=== PATIENT | female | born 1960 | race Caucasian/White ===

== ENCOUNTER → 2016-09-12 | Outpatient (REF) | payer OTHER | LOC: M SFHCPLAZ 15:47 | PROVIDERS: ATTEND Dermatology | DX: L57.0 Actinic keratosis (principal); C44.301 Unspecified malignant neoplasm of skin of nose; C44.91 Basal cell carcinoma of skin, unspecified ==

== ENCOUNTER → 2016-10-11 | Outpatient (REF) | payer OTHER ==
[2016-10-11 16:03] LABS: MEAN CORPUSCULAR HEMOGLOBIN 29.6 pg (27.0-33.0); MEAN CORPUSCULAR HGB CONC 33.8 g/dl (32.0-36.5); MEAN CORPUSCULAR VOLUME 87.7 fl (80.0-96.0); RED CELL DISTRIBUTION WIDTH 12.4 % (11.5-14.5); WHITE BLOOD COUNT 5.2 K/mm3 (4.0-10.0)
[2016-10-11 16:24] LABS: ALBUMIN 4.1 GM/DL (3.2-5.2); ALBUMIN/GLOBULIN RATIO 1.46 (1.00-1.93); ALKALINE PHOSPHATASE 49 U/L (45-117); ALT/SGPT 26 U/L (12-78); ANION GAP 7 MEQ/L (8-16); AST/SGOT 14 U/L (15-37); BLOOD UREA NITROGEN 12 MG/DL (7-18); CALCIUM LEVEL 8.9 MG/DL (8.5-10.1); CARBON DIOXIDE LEVEL 29 MEQ/L (21-32); CHLORIDE LEVEL 104 MEQ/L (98-107); CHOLESTEROL LEVEL 223 MG/DL (<200); CREATININE FOR GFR 0.63 MG/DL (0.55-1.02); FREE T4 1.06 NG/DL (0.76-1.46); GLOMERULAR FILTRATION RATE > 60.0 (>51); GLUCOSE, FASTING 79 MG/DL (70-105); MAGNESIUM LEVEL 2.4 MG/DL (1.8-2.4); SODIUM LEVEL 140 MEQ/L (136-145); TOTAL PROTEIN 6.9 GM/DL (6.4-8.2); TRIGLYCERIDES LEVEL 87 MG/DL (<150)
[2016-10-11 16:28] LABS: VITAMIN B12 LEVEL > 2000 PG/ML (247-911)
== END ==
LOC: M LABDRAW1 15:39
PROVIDERS: ATTEND Nurse Practitioner Family
DX: R53.83 Other fatigue (principal); R63.5 Abnormal weight gain; E78.00 Pure hypercholesterolemia, unspecified; D64.9 Anemia, unspecified; E55.9 Vitamin D deficiency, unspecified; E53.8 Deficiency of other specified B group vitamins

== ENCOUNTER → 2017-11-11 | Outpatient (REF) | payer OTHER ==
[2017-11-11 12:52] LABS: HEMATOCRIT 37.3 % (36.0-47.0); HEMOGLOBIN 12.4 g/dl (12.0-15.5); MEAN CORPUSCULAR HEMOGLOBIN 29.1 pg (27.0-33.0); MEAN CORPUSCULAR HGB CONC 33.2 g/dl (32.0-36.5); MEAN CORPUSCULAR VOLUME 87.6 fl (80.0-96.0); PLATELET COUNT, AUTOMATED 288 10^3/uL (150-450); RED BLOOD COUNT 4.26 10^6/uL (4.00-5.40); RED CELL DISTRIBUTION WIDTH 12.9 % (11.5-14.5); WHITE BLOOD COUNT 4.6 10^3/uL (4.0-10.0)
[2017-11-11 13:19] LABS: ESTIMATED AVERAGE GLUCOSE 108 MG/DL (60-110); HEMOGLOBIN A1c 5.4 %
[2017-11-11 13:21] LABS: ALBUMIN/GLOBULIN RATIO 1.48 (1.00-1.93); ALKALINE PHOSPHATASE 50 U/L (45-117); ALT/SGPT 28 U/L (12-78); ANION GAP 6 MEQ/L (8-16); AST/SGOT 17 U/L (7-37); BILIRUBIN,TOTAL 1.1 MG/DL (0.2-1.0); BLOOD UREA NITROGEN 10 MG/DL (7-18); CALCIUM LEVEL 8.5 MG/DL (8.5-10.1); CARBON DIOXIDE LEVEL 27 MEQ/L (21-32); CHLORIDE LEVEL 109 MEQ/L (98-107); CHOLESTEROL LEVEL 186 MG/DL (<200); CHOLESTEROL RISK RATIO 2.657 (<5); CPK CREATINE PHOSPHOKINASE 203 U/L (26-192); CREATININE FOR GFR 0.61 MG/DL (0.55-1.30); GLOMERULAR FILTRATION RATE > 60.0 (>51); GLUCOSE, FASTING 92 MG/DL (70-100); HDL CHOLESTEROL 70 MG/DL (>40); LDL CHOLESTEROL 96.6 MG/DL (<100); NON-HDL-C 116 MG/DL; POTASSIUM SERUM 4.4 MEQ/L (3.5-5.1); SODIUM LEVEL 142 MEQ/L (136-145); TOTAL PROTEIN 6.7 GM/DL (6.4-8.2); TRIGLYCERIDES LEVEL 97 MG/DL (<150)
== END ==
LOC: M LABDRAW1 10:15
DX: E78.00 Pure hypercholesterolemia, unspecified (principal); I10 Essential (primary) hypertension; R73.9 Hyperglycemia, unspecified

== ENCOUNTER 2018-01-09 08:15 | Inpatient (IN) | payer BC, OTHER ==
[2018-01-09] MEDS: ONDANSETRON 4MG/2ML VIAL (J2405) IV ×3 (08:35→14:24)
[2018-01-09] MEDS: MORPHINE 4 MG/ML 1ML VIAL/SYRINGE (J2270) IV ×3 (08:35→10:00)
[2018-01-09 08:45] LABS: BASO % 0.9 % (0.0-1.0); EOS # 0.2 10^3/uL (0.0-0.50); EOS % 3.4 % (0.0-3.0); HEMATOCRIT 37.4 % (36.0-47.0); HEMOGLOBIN 12.3 g/dl (12.0-15.5); IMMATURE GRANULOCYTE % 0.7 % (0-3.0); LYMPH # 1.4 10^3/uL (1.5-4.5); MEAN CORPUSCULAR HEMOGLOBIN 29.6 pg (27.0-33.0); MEAN CORPUSCULAR HGB CONC 32.9 g/dl (32.0-36.5); MEAN CORPUSCULAR VOLUME 90.1 fl (80.0-96.0); MONO # 0.4 10^3/uL (0.0-0.8); MONO % 8.3 % (0.0-5.0); NEUTROPHILS # 2.4 10^3/uL (1.8-7.7); NEUTROPHILS % 55.7 % (36.0-66.0); PLATELET COUNT, AUTOMATED 279 10^3/uL (150-450); RED BLOOD COUNT 4.15 10^6/uL (4.00-5.40); RED CELL DISTRIBUTION WIDTH 12.9 % (11.5-14.5); WHITE BLOOD COUNT 4.4 10^3/uL (4.0-10.0)
[2018-01-09 08:56] LABS: PROTHROMBIN TIME 12.2 SECONDS (12.1-14.4)
[2018-01-09 09:05] LABS: ALBUMIN 3.7 GM/DL (3.2-5.2); ALBUMIN/GLOBULIN RATIO 1.23 (1.00-1.93); ALKALINE PHOSPHATASE 61 U/L (45-117); ALT/SGPT 27 U/L (12-78); ANION GAP 8 MEQ/L (8-16); AST/SGOT 14 U/L (7-37); BILIRUBIN,TOTAL 0.5 MG/DL (0.2-1.0); BLOOD UREA NITROGEN 22 MG/DL (7-18); CALCIUM LEVEL 8.4 MG/DL (8.5-10.1); CARBON DIOXIDE LEVEL 25 MEQ/L (21-32); CHLORIDE LEVEL 111 MEQ/L (98-107); CREATININE FOR GFR 0.74 MG/DL (0.55-1.30); GLOMERULAR FILTRATION RATE > 60.0 (>51); GLUCOSE, FASTING 123 MG/DL (70-100); POTASSIUM SERUM 4.3 MEQ/L (3.5-5.1); SODIUM LEVEL 144 MEQ/L (136-145); TOTAL PROTEIN 6.7 GM/DL (6.4-8.2)
[2018-01-09] MEDS: NS 1,000 ML IV (09:05)
[2018-01-09] MEDS ORDERED: NS 1,000 ML IV (09:18)
[2018-01-09] MEDS ORDERED: MORPHINE 4 MG/ML 1ML VIAL/SYRINGE (J2270) As Ordered (09:52)
[2018-01-09] MEDS: PROPOFOL 200 MG/20 ML VIAL IV (10:05)
[2018-01-09] MEDS ORDERED: ISOVUE-370 76% 100ML VIAL (Q9967) As Ordered (10:09)
[2018-01-09] MEDS: KETOROLAC 30 MG/ML VIAL (J1885) IV (10:12)
[2018-01-09] MEDS ORDERED: MORPHINE 4 MG/ML 1ML VIAL/SYRINGE (J2270) IV (12:00)
[2018-01-09] MEDS ORDERED: PERCOCET 5MG/325MG TAB PO ×2 (12:00→23:00)
[2018-01-09] MEDS ORDERED: ONDANSETRON 4 MG TAB (S0181) PO (12:00)
[2018-01-09] MEDS: D5W/0.9% SODIUM CHLORIDE 1,000 ML IV (14:23)
[2018-01-09] MEDS ORDERED: LIDOCAINE 2% INJ 100 MG/5 ML SDV (FOR ANES.) As Ordered (18:13)
[2018-01-09] MEDS ORDERED: MIDAZOLAM INJ 2 MG/2 ML VIAL (J2250) As Ordered (18:13)
[2018-01-09] MEDS ORDERED: PROPOFOL 200 MG/20 ML VIAL As Ordered (18:13)
[2018-01-09] MEDS ORDERED: ONDANSETRON 4MG/2ML VIAL (J2405) As Ordered (18:13)
[2018-01-09] MEDS ORDERED: dexameTHASONE 4 MG/ML 1ML VIAL (J1100) As Ordered (18:13)
[2018-01-09] MEDS ORDERED: fentaNYL 100 MCG/2 ML INJECTION (J3010) As Ordered (18:14)
[2018-01-09] MEDS: ceFAZolin 2 GM/D5W 50 ML IV BAG (J0690 PER 500MG) As Ordered (18:28)
[2018-01-09] MEDS: BUPIVACAINE/EPIN 0.25% 30 ML VIAL As Ordered (18:55)
[2018-01-09] MEDS ORDERED: HYDROmorphone HCL 2 MG/ML 1ML VIAL (J1170) As Ordered (18:59)
[2018-01-09] MEDS: ceFAZolin 1GM INJ (J0690 PER 500MG) As Ordered (19:07)
[2018-01-09] MEDS ORDERED: PHENYLephrine HCL 500 MCG/5 ML (100MCG/ML) SYRINGE (J2370) As Ordered (19:46)
[2018-01-09] MEDS ORDERED: LABETALOL HCL 100 MG/20 ML VIAL As Ordered (20:51)
[2018-01-09] MEDS ORDERED: METOCLOPRAMIDE INJ 10MG/2ML VIAL (J2765) IV (22:15)
[2018-01-09] MEDS: LR 1,000 ML IV (22:15)
[2018-01-09] MEDS ORDERED: fentaNYL 100 MCG/2 ML INJECTION (J3010) IV (22:15)
[2018-01-09] MEDS ORDERED: MEPERIDINE INJ 25 MG/ML VIAL (J2175) IV (22:15)
[2018-01-09] MEDS ORDERED: ONDANSETRON 4MG/2ML VIAL (J2405) IV (22:15)
[2018-01-09] MEDS: PERCOCET 5MG/325MG TAB PO (22:52)
[2018-01-09] MEDS: D5W/LR 1,000 ML IV (23:30)
[2018-01-09] MEDS: PROMETHAZINE INJ 25 MG/ML VIAL (J2550) IV (23:30)
[2018-01-10] MEDS: PERCOCET 5MG/325MG TAB PO ×2 (06:42→11:15)
[2018-01-10] MEDS: METAMUCIL (PSYLLIUM) PACKET PO (09:00)
[2018-01-10] MEDS: ASPIRIN 81 MG CHEW TABLET PO (10:00)
== END 2018-01-10 15:03 | disposition home or self-care (01) | DRG 313 ==
LOC: M ED 08:15 → M ED INP 10:20 → M MS5PR 13:40
PROC: 0QSK04Z Reposition Left Fibula with Internal Fixation Device, Open Approach (ICD-10-PCS; principal; 2018-01-09 09:17)
PROC: 0QSH04Z Reposition Left Tibia with Internal Fixation Device, Open Approach (ICD-10-PCS; 2018-01-09 09:17)
DX: S82.852A Displaced trimalleolar fracture of left lower leg, initial encounter for closed fracture (principal); E78.5 Hyperlipidemia, unspecified; X50.9XXA Other and unspecified overexertion or strenuous movements or postures, initial encounter; W10.9XXA Fall (on) (from) unspecified stairs and steps, initial encounter; Y92.009 Unspecified place in unspecified non-institutional (private) residence as the place of occurrence of the external cause; Z79.899 Other long term (current) drug therapy; Y99.8 Other external cause status

== ENCOUNTER → 2018-03-10 | Outpatient (REF) | payer OTHER | LOC: M SFHCLERA 11:59 | DX: R35.0 Frequency of micturition (principal) ==

== ENCOUNTER → 2019-06-01 | Outpatient (REF) | payer BC, OTHER ==
[~2019-06-01] MED LIST: ASPI81TA85 PO; BUPR150T3 PO; CYAN100049 PO; EZET10TA21 PO; FISH7.5C PO; PERC5TAB12 PO; VALS1TAB66 PO
[2019-06-01 15:50] LABS: HEMATOCRIT 41.1 % (36.0-47.0); HEMOGLOBIN 12.8 g/dl (12.0-15.5); MEAN CORPUSCULAR HEMOGLOBIN 28.7 pg (27.0-33.0); MEAN CORPUSCULAR HGB CONC 31.1 g/dl (32.0-36.5); MEAN CORPUSCULAR VOLUME 92.2 fl (80.0-96.0); PLATELET COUNT, AUTOMATED 297 10^3/uL (150-450); RED BLOOD COUNT 4.46 10^6/uL (4.00-5.40); WHITE BLOOD COUNT 4.3 10^3/uL (4.0-10.0)
[2019-06-01 15:57] LABS: ALBUMIN 4.1 GM/DL (3.2-5.2); ALT/SGPT 31 U/L (12-78); BILIRUBIN,TOTAL 1.1 MG/DL (0.2-1.0); BLOOD UREA NITROGEN 13 MG/DL (7-18); CALCIUM LEVEL 8.8 MG/DL (8.8-10.2); CARBON DIOXIDE LEVEL 26 MEQ/L (21-32); CHLORIDE LEVEL 107 MEQ/L (98-107); CHOLESTEROL LEVEL 203 MG/DL (<200); CHOLESTEROL RISK RATIO 3.075 (<5); CPK CREATINE PHOSPHOKINASE 86 U/L (26-192); CREATININE FOR GFR 0.66 MG/DL (0.55-1.30); GLOMERULAR FILTRATION RATE > 60.0 (>45); GLUCOSE, FASTING 86 MG/DL (70-100); HDL CHOLESTEROL 66 MG/DL (>40); LDL CHOLESTEROL 120 MG/DL (<100); NON-HDL-C 137 MG/DL; POTASSIUM SERUM 4.3 MEQ/L (3.5-5.1); SODIUM LEVEL 140 MEQ/L (136-145); TOTAL PROTEIN 6.9 GM/DL (6.4-8.2); TRIGLYCERIDES LEVEL 84 MG/DL (<150)
[2019-06-01 16:05] LABS: VITAMIN B12 LEVEL 805 PG/ML (247-911)
== END ==
LOC: M LABDRAW1 15:26
PROVIDERS: ATTEND Nurse Practitioner Family
DX: E78.5 Hyperlipidemia, unspecified (principal); I10 Essential (primary) hypertension; E53.8 Deficiency of other specified B group vitamins

== ENCOUNTER → 2019-11-30 | Outpatient (REF) | payer OTHER | LOC: M LAB REF 18:19 | PROVIDERS: ATTEND Dermatology | DX: D22.60 Melanocytic nevi of unspecified upper limb, including shoulder (principal) ==

== ENCOUNTER → 2021-03-10 | Outpatient (CLI) | payer BC, OTHER ==
[~2021-03-10] MED LIST changes: -ASPI81TA85 PO; +ASPI81TA86 PO; +BUPR150T12 PO; -BUPR150T3 PO
--- NOTE | 2021-03-10 14:42 | REPVR ---
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 Radiation optimization: All CT scans at this facility use at least one of these dose optimization techniques: automated exposure control; mA and/or kV adjustment per patient size (includes targeted exams where dose is matched to clinical indication); or iterative reconstruction. COMPARISON: CT Head without contrast 01/10/2018 1:05 PM FINDINGS: Brain: There is mild ill-defined patchy hypodensity within the bilateral cerebral periventricular white matter, consistent with chronic microvascular ischemic changes. There is mild diffuse cerebral atrophy present, consistent with this patient's age. Cerebral ventricles: The ventricular system demonstrates mild diffuse compensatory enlargement. Paranasal sinuses: Visualized sinuses are unremarkable. No fluid levels. Mastoid air cells: Visualized mastoid air cells are well aerated. Bones/joints: Unremarkable. No acute fracture. Soft tissues: Unremarkable. Other findings: The study is limited due to motion artifact. IMPRESSION: 1. No acute infarction, masses or hemorrhage is seen. No acute intracranial abnormality is identified. 2. Diffuse age-related cerebral atrophy and mild chronic microvascular white matter ischemic changes. 3. There has been no adverse interval change since the previous study. Electronically signed by: Kb Landis On 03/10/2021 14:41:54 PM
== END ==
LOC: M PLAIMG 14:04
PROVIDERS: ATTEND Nurse Practitioner Family
DX: R42 Dizziness and giddiness (principal); R26.81 Unsteadiness on feet

== ENCOUNTER → 2021-12-20 | Outpatient (CLI) | payer BC, OTHER | LOC: M WHC 13:42 | PROVIDERS: ATTEND Advanced Practice Midwife | DX: Z12.31 Encounter for screening mammogram for malignant neoplasm of breast (principal); Z53.9 Procedure and treatment not carried out, unspecified reason ==

== ENCOUNTER → 2021-12-20 | Outpatient (REF) | payer OTHER, BC | LOC: M SFHCWAGY 17:11 | PROVIDERS: ATTEND Advanced Practice Midwife | DX: Z12.4 Encounter for screening for malignant neoplasm of cervix (principal); Z01.419 Encounter for gynecological examination (general) (routine) without abnormal findings; Z77.9 Other contact with and (suspected) exposures hazardous to health ==

== ENCOUNTER → 2023-11-27 | Outpatient (CLI) | payer OTHER, BC ==
[~2023-11-27] MED LIST changes: +FISH10005 PO; -FISH7.5C PO
== END ==
LOC: M WUC 10:35
PROVIDERS: ATTEND Nurse Practitioner Family
DX: M25.512 Pain in left shoulder (principal)

== ENCOUNTER → 2024-03-06 | Outpatient (CLI) | payer BC, MEDICARE | LOC: M PLARAD 13:38 | PROVIDERS: ATTEND Orthopaedic Surgery Hand Surgery | DX: R22.30 Localized swelling, mass and lump, unspecified upper limb (principal); M71.341 Other bursal cyst, right hand ==

== ENCOUNTER → 2024-04-07 | Outpatient (CLI) | payer BC, MEDICARE ==
[~2024-04-07] MED LIST changes: +CINN500C15 PO; +IRBE150T27 PO; +POTA99CA2 PO; +ROSU5TAB49 PO; +SEMA1PEN4 SC; +TURM500C PO; +VITA1CHW7 PO
== END ==
LOC: M SOG 07:58
PROVIDERS: ATTEND Physician Assistant
DX: R22.30 Localized swelling, mass and lump, unspecified upper limb (principal)

== ENCOUNTER → 2024-04-13 | Day surgery (SDC) | payer MEDICARE ==
[~2024-04-13] VITALS: Ht 152.4 cm; Wt 61.7 kg
[~2024-04-13] MED LIST changes: +ACETAMINOPHEN 1000MG 100ML IV BAG As Ordered ONE; +KETOROLAC 60MG 2ML VIAL As Ordered ONE; +LIDOCAINE 2% 100MG/5ML SDV (FOR ANES.) As Ordered ONE; +MIDAZOLAM INJ 2MG/2ML VIAL As Ordered ONE; +MORPHINE 2 MG/ML 1ML VIAL IV PRN; +ONDANSETRON 4MG 2ML VIAL As Ordered ONE; +ONDANSETRON 4MG 2ML VIAL IV PRN; +ROSU5TAB40 PO; -ROSU5TAB49 PO; +ePHEDrine SULFATE 25 MG/5 ML(5MG/ML) SYRINGE As Ordered ONE; +fentaNYL 100 MCG/2 ML INJECTION As Ordered ONE; +fentaNYL 100 MCG/2 ML INJECTION IV PRN; +oxyCODONE 5MG TAB PO PRN; +propofoL 200 MG/20 ML VIAL As Ordered ONE
[2024-04-13] MEDS: LR 1,000 ML IV SCH (11:06)
[2024-04-13] MEDS: ceFAZolin SOD 2 GM in IV 1 EA IV ONE (11:59)
[2024-04-13] MEDS: BACITRACIN OINTMENT 30GM TUBE As Ordered ONE (12:27)
[2024-04-13 13:07] VITALS: TEMP 97.9
[2024-04-13 13:15] VITALS: BP 125/76; O2SAT 98
== END | disposition home or self-care (01) ==
LOC: M SDC 09:25
PROVIDERS: ATTEND Orthopaedic Surgery Hand Surgery
DX: M67.441 Ganglion, right hand (principal); Z79.899 Other long term (current) drug therapy
CPT/HCPCS: 26160; 88305; J0131; J0665; J0690; J1100; J1885; J2250; J2405; J3010

== ENCOUNTER → 2025-05-31 | Outpatient (REF) | payer MEDICARE ==
[~2025-05-31] MED LIST changes: -ACETAMINOPHEN 1000MG 100ML IV BAG As Ordered ONE; -EZET10TA21 PO; +EZET10TA57 PO; -FISH10005 PO; +FISH1CAP38 PO; -KETOROLAC 60MG 2ML VIAL As Ordered ONE; -LIDOCAINE 2% 100MG/5ML SDV (FOR ANES.) As Ordered ONE; -MIDAZOLAM INJ 2MG/2ML VIAL As Ordered ONE; -MORPHINE 2 MG/ML 1ML VIAL IV PRN; -ONDANSETRON 4MG 2ML VIAL As Ordered ONE; -ONDANSETRON 4MG 2ML VIAL IV PRN; -ROSU5TAB40 PO; +ROSU5TAB49 PO; -ePHEDrine SULFATE 25 MG/5 ML(5MG/ML) SYRINGE As Ordered ONE; -fentaNYL 100 MCG/2 ML INJECTION As Ordered ONE; -fentaNYL 100 MCG/2 ML INJECTION IV PRN; -oxyCODONE 5MG TAB PO PRN; -propofoL 200 MG/20 ML VIAL As Ordered ONE
== END ==
LOC: M LAB REF 16:53
PROVIDERS: ATTEND Student in an Organized Health Care Education/Training Program
DX: R30.0 Dysuria (principal)